=== PATIENT | female | born 1940 | race Caucasian/White ===

== ENCOUNTER 2020-12-30 17:23 | Emergency (ER) | payer OTHER, BC ==
[2020-12-30 18:04] VITALS: TEMP 98.7; BMI 25.7
[2020-12-30 19:14] LABS: BASO % 0.6 % (0-2.0); EOS % 0.1 % (0-4.5); HEMATOCRIT 37.7 % (32.4-45.2); HEMOGLOBIN 12.6 GM/dL (10.7-15.3); LYMPH % 11.6 % (8-40); MCH 28.7 pg (25.7-33.7); MCHC 33.3 g/dl (32.0-36.0); MEAN PLT VOLUME 9.4 fl (7.5-11.1); MONO % 6.5 % (3.8-10.2); NEUT % 81.2 % (42.8-82.8); PLATELET COUNT 167 10^3/uL (134-434); RBC 4.39 M/mm3 (3.60-5.2); RDW 16.2 % (11.6-15.6); WHITE BLOOD COUNT 6.2 K/mm3 (4.0-10.0)
[2020-12-30 19:40] LABS: CALCIUM 8.8 mg/dL (8.5-10.1)
[2020-12-30 19:41] LABS: ALBUMIN 3.1 g/dl (3.4-5.0); BLOOD UREA NITROGEN 10.8 mg/dL (7-18)
[2020-12-30 19:44] LABS: CREATININE 0.8 mg/dL (0.55-1.3)
[2020-12-30 19:45] LABS: BILIRUBIN,TOTAL 0.6 mg/dL (0.2-1); TOT PROT 8.1 g/dl (6.4-8.2)
[2020-12-30] MEDS ORDERED: LIDOCAINE PATCH REMOVAL MC SCH (22:00)
[2020-12-30] MEDS ORDERED: ACETAMINOPHEN 325 MG TABLET (FP) PO ONE (22:38)
[2020-12-30] MEDS ORDERED: LIDOCAINE 5% TOPICAL PATCH TP ONE (22:39)
[2020-12-30] MEDS ORDERED: ACETAMINOPHEN 325 MG TABLET (FP) ONE (22:49)
[2020-12-30] MEDS ORDERED: LIDOCAINE 5% TOPICAL PATCH ONE (22:49)
[2020-12-31 00:21] VITALS: BP 139/82; PULSE 62
== END 2020-12-31 00:23 | disposition home or self-care (01) ==
LOC: JER 17:23
DX: S79.912A Unspecified injury of left hip, initial encounter (principal); W19.XXXA Unspecified fall, initial encounter
CPT/HCPCS: 36415; 72192-TC; 73070-TC-LT-FY; 73523-TC-FY; 73560-TC-LT-FY; 80053; 85025; 99285-25